=== PATIENT | female | born 1950 | race Caucasian/White ===

== ENCOUNTER 2017-04-17 00:29 | Emergency (ER) | payer MEDICARE, MEDICAID ==
[~2017-04-17] VITALS: Ht 165.1 cm; Wt 83.9 kg
[2017-04-17] MEDS ORDERED: AMLODIPINE BESYL5 MG ORAL (00:46)
[2017-04-17] MEDS ORDERED: LAMICTAL150 MG ORAL (00:46)
[2017-04-17 00:53] VITALS: BP 113/58
[2017-04-17] MEDS ORDERED: Bicillin LA 1.2 Million Units Syr IM ONE (01:00)
[2017-04-17] MEDS ORDERED: LIDOCAINE20 MG/1 M1 MM (01:05)
[2017-04-17] MEDS ORDERED: Lidocaine 2% Visc 15ml soln ORAL ONE (01:15)
[2017-04-17 01:18] VITALS: BP 113/60
--- NOTE | 2017-04-17 04:59 | Emergency Room Report ---
History of Present Illness General Chief Complaint: Pain Source: Patient Present Illness HPI Patient 66-year-old female presented after increased right-sided facial pain and swelling. Patient reported having recent partial denture use. Patient had increased pain to the upper side of her area near denture. She been having any fever. She had no reported difficulty opening her mouth. She denied any sore throat. She gradually worsening symptoms. Allergies: Coded Allergies: GLUTEN (Verified Allergy, Unknown, 04/17/17) Patient History Past Medical History: see triage record Reviewed Nursing Documentation: PMH: Agreed, PSxH: Agreed Nursing Documentation-PMH Hx Hypertension: Yes History Of Psychiatric Problem: Yes - DEPRESSION Review of Systems All Other Systems: negative except mentioned in HPI Physical Exam Vital Signs Date Time Temp Pulse Resp B/P Pulse Ox O2 Delivery O2 Flow Rate FiO2 04/17/17 00:40 98.1 72 16 113/58 96 Room Air General Appearance: well appearing, no apparent distress, alert, GCS 15, non- toxic Head: normocephalic, atraumatic ENT: hearing grossly normal, normal voice Neck: full range of motion, supple Respiratory: no respiratory distress, speaking full sentences Cardiovascular #1: normal peripheral pulses, regular rate, rhythm, no edema Gastrointestinal: normal bowel sounds, non tender, soft, no mass Musculoskeletal: no calf tenderness Neurologic: normal gait Psychiatric: mood/affect normal Skin: no rash Medical Decision Making Diagnostic Impression: Primary Impression: Dental infection ER Course Patient presented for dental pain. Differential diagnosis included but was not limited to trigeminal neuralgia, dental abscess, dry socket, osteomyelitis, nerve injury. The patient was noted to have a benign exam. The patient's present a slight infection to the right side of her upper gingiva without evident abscess. Patient was given IM penicillin The patient is advised to follow up with dentist in 1-2 days. Patient is advised to return if any worsening condition or if any changes in status that are concerning. Last Vital Signs Date Time Temp Pulse Resp B/P Pulse Ox O2 Delivery O2 Flow Rate FiO2 04/17/17 01:18 76 16 113/60 97 Room Air 04/17/17 00:53 98.1 Status: improved Disposition: HOME, SELF-CARE Condition: Stable Scripts Lidocaine HCl (Lidocaine HCl Viscous) 100 Ml Solution 20 MG MM EVERY 4 HOURS, #120 MG Prov: Tirso Mckenna 04/17/17 Referrals: NOT CHOSEN [facility]/MD,REFERRING (PCP) Patient Instructions: Dental Pain Tirso Mckenna Apr 17, 2017 04:59
== END 2017-04-17 02:25 | disposition home or self-care (01) ==
LOC: EMR 02:25
DX: K04.7 Periapical abscess without sinus (principal); I10 Essential (primary) hypertension; F32.9 Major depressive disorder, single episode, unspecified
CPT/HCPCS: 96372; 99283; J0570; J0561

== ENCOUNTER 2017-07-02 11:13 | Emergency (ER) | payer MEDICARE, MEDICAID ==
[~2017-07-02] VITALS: Ht 165.1 cm; Wt 79.4 kg
[~2017-07-02 11:13] MED LIST: AMLODIPINE BESYL5 MG ORAL; LAMICTAL150 MG ORAL; LIDOCAINE20 MG/1 M1 MM
[2017-07-02 11:24] VITALS: BP 147/84
[2017-07-02 12:52] LABS: BASOPHILS % (AUTO) 0.7 % (0.0-2.0); EOSINOPHILS % (AUTO) 2.4 % (0.0-3.0); HEMATOCRIT 43.7 % (37.0-47.0); HEMOGLOBIN 14.7 G/DL (12.0-16.0); LYMPHOCYTES % (AUTO) 29.3 % (20.0-45.0); MEAN CORPUSCULAR VOLUME 95 FL (80-99); MONOCYTES % (AUTO) 6.4 % (1.0-10.0); NEUTROPHILS % (AUTO) 61.1 % (45.0-75.0); PLATELET COUNT 260 K/UL (150-450); RED BLOOD COUNT 4.58 M/UL (4.20-5.40); RED CELL DISTRIBUTION WIDTH 10.8 % (11.6-14.8); WHITE BLOOD COUNT 8.9 K/UL (4.8-10.8)
[2017-07-02 13:12] LABS: ALANINE AMINOTRANSFERASE 22 U/L (12-78); ALBUMIN 4.1 G/DL (3.4-5.0); ALBUMIN/GLOBULIN RATIO 1.1 (1.0-2.7); ALKALINE PHOSPHATASE 43 U/L (46-116); ANION GAP 10 mmol/L (5-15); ASPARTATE AMINO TRANSFERASE 15 U/L (15-37); BILIRUBIN,TOTAL 0.2 MG/DL (0.2-1.0); BLOOD UREA NITROGEN 19 mg/dL (7-18); CALCIUM 9.2 MG/DL (8.5-10.1); CARBON DIOXIDE 23 MMOL/L (21-32); CHLORIDE 104 MMOL/L (98-107); POTASSIUM 4.1 MMOL/L (3.5-5.1); SODIUM 137 MMOL/L (136-145)
[2017-07-02] MEDS ORDERED: CYCLOBENZAPRINE10 MG ORAL (14:40)
[2017-07-02 14:50] VITALS: BP 133/75
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
== END 2017-07-02 14:50 | disposition home or self-care (01) ==
LOC: EMR 11:56
DX: S16.1XXA Strain of muscle, fascia and tendon at neck level, initial encounter (principal); R51 Headache; V43.52XA Car driver injured in collision with other type car in traffic accident, initial encounter; Y93.9 Activity, unspecified; Y92.410 Unspecified street and highway as the place of occurrence of the external cause; Z91.018 Allergy to other foods
CPT/HCPCS: 36415; 70450; 70498; 80053; 85025; 99284; Q9967